=== PATIENT | female | born 1990 | race Two or more races ===

== ENCOUNTER 2021-02-07 08:47 | Emergency (ER) | payer MEDICAID, OTHER ==
[~2021-02-07] VITALS: Ht 152.4 cm; Wt 81.6 kg
[2021-02-07 09:03] VITALS: BP 157/118
[2021-02-07 09:30] LABS: Urine Amorphous Crystal FEW /hpf (None Seen); Urine Bacteria NONE SEEN /hpf (None Seen); Urine Blood Negative /uL (Negative); Urine Hyaline Cast FEW /lpf (0 - 2); Urine Mucus FEW (None Seen); Urine Specific Gravity 1.021 (1.001-1.035); Urine WBC 1 /hpf (0 - 5)
[2021-02-07] MEDS ORDERED: cefTRIAXone SOD 500 MG VL IM ONE (09:45)
[2021-02-07] MEDS ORDERED: AZITHROMYCIN 250 MG TAB PO ONE (09:45)
[2021-02-07] MEDS ORDERED: LIDOCAINE 1% HCL (LOCAL ANESTH.) INJ 20ML MDV ONE (09:55)
== END 2021-02-07 10:19 | disposition home or self-care (01) ==
LOC: ER 08:47
DX: N76.0 Acute vaginitis (principal); F17.210 Nicotine dependence, cigarettes, uncomplicated; F12.10 Cannabis abuse, uncomplicated; Z20.2 Contact with and (suspected) exposure to infections with a predominantly sexual mode of transmission; Z32.02 Encounter for pregnancy test, result negative
CPT/HCPCS: 81001; 81025; 87210; 96372; 99284; J0696; J2001